=== PATIENT | male | born 1945 ===

== ENCOUNTER 2020-11-10 06:00 | Outpatient (RCR) | payer MEDICARE, MEDICAID, SELFPAY | END 2020-12-08 23:59 | disposition home or self-care (01) | LOC: SST 06:00 | PROVIDERS: Referring Provider Family Medicine Geriatric Medicine; Visit Provider Family Medicine Geriatric Medicine | DX: I69.320 Aphasia following cerebral infarction (principal); U07.1 COVID-19 | CPT/HCPCS: 92607; 92608 ==